=== PATIENT | female | born 1995 | race Caucasian/White ===

== ENCOUNTER 2018-10-20 06:21 | Day surgery (SDC) | payer OTHER ==
[2018-10-20] MEDS ORDERED: CEFAZOLIN 1 GM INJ (07:00)
[2018-10-20] MEDS ORDERED: NEOSTIGMINE 3 MG/3 ML SYRINGE (07:00)
[2018-10-20] MEDS ORDERED: GLYCOPYRROLATE 0.4 MG INJ (07:00)
[2018-10-20] MEDS ORDERED: DEXAMETHASONE 4 MG/ML 5 ML INJ (07:00)
[2018-10-20] MEDS ORDERED: FENTAnyl 50 MCG/ML VIAL (08:11)
[2018-10-20] MEDS ORDERED: ROCURONIUM 50 MG INJ (08:12)
[2018-10-20] MEDS ORDERED: PROPOFOL 20 ML (08:12)
[2018-10-20] MEDS ORDERED: SUCCINYLCHOLINE CHLORIDE 100 MG/5 ML SYG IV (08:12)
[2018-10-20] MEDS ORDERED: MIDAZOLAM 1 MG/ML 2 ML INJ (08:12)
[2018-10-20] MEDS ORDERED: METOCLOPRAMIDE 10 MG INJ (08:12)
[2018-10-20] MEDS ORDERED: LIDOCAINE 2% (SDV) 5 ML INJ (08:12)
[2018-10-20] MEDS ORDERED: ROPIVACAINE 0.5 % 30 ML VIAL (08:36)
[2018-10-20] MEDS ORDERED: HYDROmorphONE 1 MG/5 ML IV SYRINGE IV (10:00)
[2018-10-20] MEDS ORDERED: LEVALBUTEROL (NEB) 1.25 MG/0.5 ML AMP HHN (10:00)
[2018-10-20] MEDS ORDERED: FENTAnyl 50 MCG/ML VIAL IV (10:00)
[2018-10-20] MEDS: FENTAnyl 50 MCG/ML VIAL IV ×2 (11:06→11:12)
[2018-10-20] MEDS: HYDROmorphONE 1 MG/5 ML IV SYRINGE IV ×2 (11:06→11:12)
[2018-10-20] MEDS: MEPERIDINE 25 MG INJ IV (11:12)
[2018-10-20] MEDS: ONDANSETRON 4 MG INJ IV (11:12)
[2018-10-20] MEDS: KETOROLAC 30 MG INJ IV (11:13)
[2018-10-20] MEDS: DIPHENHYDRAMINE 50 MG INJ IV (11:17)
[2018-10-20] MEDS: HYDROCODONE/APAP (5/325) TAB PO (12:08)
== END 2018-10-20 12:20 | disposition home or self-care (01) ==
LOC: SDS 06:21
DX: K80.10 Calculus of gallbladder with chronic cholecystitis without obstruction (principal); E66.9 Obesity, unspecified; Z68.36 Body mass index [BMI] 36.0-36.9, adult
CPT/HCPCS: 47562; 84703; 88304